=== PATIENT | male | born 1960 | race Caucasian/White ===

== ENCOUNTER → 2018-04-17 | Outpatient (CLI) | payer OTHER ==
[~2018-04-17] MED LIST: AMLO5 PO; ASPI81CH PO; LISI20 PO; OXYACE5T PO
== END | disposition home or self-care (01) ==
LOC: LAB SHORT 07:00 → LAB 07:00 → LAB FUT 04-16 11:20
DX: K29.00 Acute gastritis without bleeding (principal)
CPT/HCPCS: 87338

== ENCOUNTER 2018-08-12 08:29 | Day surgery (SDC) | payer OTHER ==
[~2018-08-12] VITALS: Wt 104.0 kg
--- NOTE | 2018-08-12 09:00 | NUR ---
PT ADMITTED TO [facility]. AGREES WITH PLANNED PROCEDURE. PT STATES HE DID NOT TAKE BP MEDS TODAY. LUNG SOUNDS CLEAR. STATES HE TOLERATED HIS BOWEL PREP, LAST BM CLEAR/YELLOW.
--- NOTE | 2018-08-12 09:39 | NUR ---
08/12/18 0939 Jessica Jennings PATIENT DETERMINED TO BE ASA APPROPRIATE FOR PROPOFOL SEDATION PRIOR TO START OF PROCEDURE BY DR. MONIQUE. PATIENT CONFIRMS NPO STATUS AND AGREES WITH SCHEDULED PROCEDURE. 3-LEAD EKG REVIEWED WITH PHYSICIAN PRIOR TO START OF PROCEDURE. History, Chart, Medications and Allergies reviewed before start of procedure. MONITOR INTACT WITH CONTINUOUS PULSE OXIMETRY AND INTERMITTENT BP. O2 VIA N/C INTACT THROUGHOUT SEDATION/PROCEDURE, 4 L NC. HURRICAINE SPRAY TO OROPHARYX.Bite Block Placed IMMEDIATELY PRESEDATION.
--- NOTE | 2018-08-12 10:49 | NUR ---
Discharge instructions reviewed with patient. Patient verbalizes understanding. Copy given to patient to take home. Patient States Post-Procedure ride home has been arranged. Discharged via wheelchair to private car for ride home. ALL BELONGIGNS RETURNED TO PATIENT.
== END 2018-08-12 22:45 | disposition home or self-care (01) ==
LOC: ORSCMMR 08:29 → ORD 09:30 → ORSCMMR 09:30
PROVIDERS: Internal Medicine Gastroenterology
PROC: 0DB68ZX Excision of Stomach, Via Natural or Artificial Opening Endoscopic, Diagnostic (ICD-10-PCS; principal; 2018-08-12 09:30)
PROC: 0DBN8ZX Excision of Sigmoid Colon, Via Natural or Artificial Opening Endoscopic, Diagnostic (ICD-10-PCS; principal; 2018-08-12 09:30)
PROC: 0DBH8ZX Excision of Cecum, Via Natural or Artificial Opening Endoscopic, Diagnostic (ICD-10-PCS; principal; 2018-08-12 09:30)
DX: K21.9 Gastro-esophageal reflux disease without esophagitis (principal); K29.50 Unspecified chronic gastritis without bleeding; K29.80 Duodenitis without bleeding; D12.0 Benign neoplasm of cecum; Z12.11 Encounter for screening for malignant neoplasm of colon; I10 Essential (primary) hypertension; Z79.82 Long term (current) use of aspirin; Z79.899 Other long term (current) drug therapy; Z87.891 Personal history of nicotine dependence
CPT/HCPCS: 87081; 88305; 88342; J2250; J2704; J7120

== ENCOUNTER 2023-02-16 07:53 | Emergency (ER) | payer OTHER ==
[~2023-02-16] VITALS: Ht 182.9 cm; Wt 99.8 kg
[2023-02-16 08:03] VITALS: BP 172/91
[2023-02-16] MEDS ORDERED: GABA300 PO (08:08)
[2023-02-16] MEDS ORDERED: AMLO5 (08:08)
[2023-02-16] MEDS ORDERED: CEPHALEXIN500 MG PO (08:23)
== END 2023-02-16 08:20 | disposition home or self-care (01) ==
LOC: ER 07:53
DX: L03.312 Cellulitis of back [any part except buttock and flank] (principal); I10 Essential (primary) hypertension; Z87.891 Personal history of nicotine dependence; Z79.899 Other long term (current) drug therapy
CPT/HCPCS: 99283

== ENCOUNTER 2024-02-06 07:15 | Day surgery (SDC) | payer OTHER ==
[2024-02-06] VITALS (17 sets, daily range): BP systolic 106–166; BP diastolic 80–111
[~2024-02-06] VITALS: Ht 182.9 cm; Wt 101.0 kg
[~2024-02-06 07:15] MED LIST changes: +AMLO5; +CEPHALEXIN500 MG PO; +GABA300 PO; +Lactated Ringer's 1,000 ML IV SCH; +propofoL 40 ML IV ONE
[2024-02-06] MEDS ORDERED: NS 500 ML IV SCH (07:30)
--- NOTE | 2024-02-06 08:38 | NUR ---
02/06/24 0838 Valerie Huffman CONFIRMED AND REVIEWED H&P, MEDCICATIONS, ALLERGIES, MEDICAL HISTORY, RESPIRATORY HISTORY, VITAL SIGNS, 3-LEAD EKG, CONSENTS, AND PHYSICIAN ORDERS. PATIENT CONFIRMS NPO STATUS AND AGREES WITH SCHEDULED PROCEDURE. MONITOR INTACT WITH CONTINUOUS PULSE OXIMETRY, CAPNOGRAPHY, 3-LEAD EKG, INTERMITTENT BP. SUPPLEMENTAL O2 TO BE TITRATED THROUGHOUT PROCEDURE TO MAINTAIN O2 SATURATION ABOVE 90%. PATIENT DETERMINED TO BE ASA APPROPRIATE FOR PROPOFOL SEDATION PRIOR TO START OF PROCEDURE BY DR. MONIQUE
[2024-02-06] MEDS ORDERED: Midazolam HCl 1MG / ML 2ML Vial ONE (08:43)
--- NOTE | 2024-02-06 09:13 | NUR ---
PT [place] [facility] [place] RECEIVED. PT IS AWAKE AND ORIENTED, BUT SLEEPY; ABLE TO MOVE SELF IN BED. NO COMPLAINTS
--- NOTE | 2024-02-06 09:21 | NUR ---
PT WIDE AWAKE. PT DECLINES PO FLUIDS. Discharge instructions reviewed with patient. Patient verbalizes understanding. Copy given to patient to take home. Patient States Post-Procedure ride home has been arranged.
--- NOTE | 2024-02-06 09:35 | NUR ---
Patient up to Ambulate independently. Gait steady. Discharged via wheelchair to private car for ride home.
== END 2024-02-06 09:39 | disposition home or self-care (01) ==
LOC: ORSCMMR 07:15 → ORD 08:30 → ORSCMMR 08:30
PROVIDERS: Internal Medicine Gastroenterology
PROC: 0DBK8ZX Excision of Ascending Colon, Via Natural or Artificial Opening Endoscopic, Diagnostic (ICD-10-PCS; principal; 2024-02-06 08:30)
PROC: 0DBN8ZX Excision of Sigmoid Colon, Via Natural or Artificial Opening Endoscopic, Diagnostic (ICD-10-PCS; principal; 2024-02-06 08:30)
DX: Z12.11 Encounter for screening for malignant neoplasm of colon (principal); K63.5 Polyp of colon; D12.2 Benign neoplasm of ascending colon; Z86.0101 Personal history of adenomatous and serrated colon polyps; I10 Essential (primary) hypertension; Z79.899 Other long term (current) drug therapy; F17.210 Nicotine dependence, cigarettes, uncomplicated
CPT/HCPCS: 88305; J2250; J2704; J7040